=== PATIENT | male | born 1955 | race Caucasian/White ===

== ENCOUNTER → 2021-07-17 | Outpatient (CLI) | payer BC ==
[~2021-07-17] MED LIST: GARLIC1 EAC1 PO; LIPITOR TAB 1010 MG PO; NORVASC 5 MG TAB5 MG PO; PLAVIX 75 MG TA75 MG PO; TYLENOL325 MG PO
[2021-07-17 08:02] LABS: HEMOGLOBIN 14.7 gm/dl (14.0-17.5); RED BLOOD COUNT 4.97 M/UL (4.20-5.50)
[2021-07-17 08:25] LABS: BUN/CREATININE RATIO 17 (0-10)
== END ==
LOC: LAB 07:24
PROVIDERS: Nurse Practitioner Family
DX: I10 Essential (primary) hypertension (principal); I73.9 Peripheral vascular disease, unspecified; M79.2 Neuralgia and neuritis, unspecified; S10.86XD Insect bite of other specified part of neck, subsequent encounter; W57.XXXD Bitten or stung by nonvenomous insect and other nonvenomous arthropods, subsequent encounter
CPT/HCPCS: 36415; 80053; 80061; 82607; 83735; 85025

== ENCOUNTER → 2021-07-18 | Outpatient (CLI) | payer BC ==
[2021-07-19 15:14] LABS: A/G RATIO 1.2 (0.7-1.7); ALBUMIN 3.7 g/dL (2.9-4.4); ALPHA-1-GLOBULIN 0.2 g/dL (0.0-0.4); ALPHA-2-GLOBULIN 0.7 g/dL (0.4-1.0); BETA GLOBULIN 1.1 g/dL (0.7-1.3); GAMMA GLOBULIN 0.9 g/dL (0.4-1.8); M-SPIKE Not Observed g/dL (Not Observed); PROTEIN, TOTAL, SERUM 6.7 g/dL (6.0-8.5)
[2021-07-20 12:12] LABS: M-SPIKE, % Not Observed % (Not Observed); PROTEIN,TOTAL,URINE 36.8 mg/dL (Not Estab.)
== END ==
LOC: LAB 07:11
PROVIDERS: Nurse Practitioner Family
DX: I10 Essential (primary) hypertension (principal); I73.9 Peripheral vascular disease, unspecified; M79.2 Neuralgia and neuritis, unspecified; S10.86XD Insect bite of other specified part of neck, subsequent encounter; W57.XXXA Bitten or stung by nonvenomous insect and other nonvenomous arthropods, initial encounter
CPT/HCPCS: 36415; 84155; 84156; 84165; 84166

== ENCOUNTER → 2021-08-15 | Outpatient (CLI) | payer BC | LOC: HEART 5 08-08 15:30 | DX: I73.9 Peripheral vascular disease, unspecified (principal) ==